=== PATIENT | female | born 1950 | race Caucasian/White ===

== ENCOUNTER 2018-09-06 05:32 | Day surgery (SDC) | payer OTHER, BC ==
[~2018-09-06] VITALS: Ht 165.1 cm; Wt 113.4 kg
--- NOTE | ~2018-09-06 | EKG ---
[address] [address] ELECTROCARDIOGRAM REPORT Name: MAULIK COLLINS Room #: 150-8 [facility].#: [id number] Admission: 09/06/18 Attend Phys: Navneet Mathews MD Discharge: Date of : 48 Report #: [id number] THIS REPORT FOR: //name// [facility] Test Date: 2018-09-06 Test Time: 06:40:00 Pat Name: MAULIK COLLINS Department: Room: 150 8 Gender: F Clamper: EDMOND : 1950 Requested By: Navneet Mathews Order Number: [id number] MD: Rogers Abbasi Measurements Intervals Hale Rate: 58 P: 46 DC: 197 QRS: 30 QRSD: 104 T: 28 QT: 433 QTc: 426 Interpretive Statements Sinus bradycardia Low voltage, precordial leads No previous ECG available for comparison Electronically Signed On 09-06-2018 8:09:22 CDT by Rogers Abbasi [email or web address] <ELECTRONICALLY SIGNED> By: Rogers Abbasi MD, [facility] 09/06/18 0809 0640 0640 Rogers Abbasi MD, FACC /EPI
--- NOTE | ~2018-09-06 | O ---
[address] [place] [address] OPERATIVE REPORT Name: MAULIK COLLINS Room #: 150-8 [facility]..#: [id number] Admission: 09/06/18 Attend Phys: Navneet Mathews MD Discharge: Date of : 48 Report #: [id number] THIS REPORT FOR: //name// CC: Ron Mathews DATE OF SERVICE: 09/06/2018 PATIENT OF: Dr. Navneet Mathews and Dr. Ron Retana. PREOPERATIVE DIAGNOSIS: Incarcerated ventral supraumbilical hernia. POSTOPERATIVE DIAGNOSIS: Incarcerated ventral supraumbilical hernia. PROCEDURE: Repair of an incarcerated ventral supraumbilical hernia. SURGEON: Navneet Mathews M.D. ANESTHESIA: Local IV sedation. DESCRIPTION OF PROCEDURE: The patient was brought to the operating room and placed on the operative room table in the supine position. Sequential compression devices were in place for DVT prophylaxis. There was no indication for preoperative antibiotics. The patient underwent IV sedation. The abdomen was then prepped and draped in a sterile fashion. Skin and subcutaneous tissue around the hernia was infiltrated with 0.5% Marcaine and 1% Xylocaine in a 1:1 mixture. A transverse skin incision was performed over the hernia using a #15 scalpel blade. Hemostasis obtained using electrocautery. Dissection was carried down through the subcutaneous tissue to the incarcerated hernia sac, which was dissected free, opened and some incarcerated omentum was dissected free and reduced back into the abdomen. The hernia sac was excised. There were two components of this hernia with a small bridge of fascia in between. I opened the bridge and dissected free the fascial edges and then they were able to be closed, fixing the hernia with interrupted [id number] #1 Prolene sutures without any tension. The deep and superficial subcutaneous tissue was then reapproximated using simple interrupted 2-0 chromic sutures and the skin then closed with a running 4-0 subcuticular Vicryl stitch. The wound was then dressed with Dermabond, Telfa, 4 x 4 gauze, sponge and tape. The patient was then taken to the recovery room awake, alert and in good condition. Estimated blood loss was approximately 10 mL and the patient tolerated procedure well. All sponge, lap and instrument counts correct x 2. By: 0910 1122 Navneet Mathews MD /nt
--- NOTE | ~2018-09-06 | PATH ---
[facility] [address] [place] [address] PATHOLOGY RPT PROCEDURE Name: MAULIK COLLINS Room #: [facility].#: [id number] Admission: 09/06/18 Date of : 48 Discharge: 09/06/18 Report #: [id number] Path Case #: [id number] [facility] Accession Number: [id number] . 01 Material submitted: . UMBILICAL HERNIA SAC . 01 Clinical history: . Umbilical hernia . 02 Diagnosis: Fibroadipose tissue, "umbilical hernia sac, herniorrhaphy": - Saccular fibroadipose tissue with congestion and chronic inflammation. . (SHA:mml; 09/07/18) QLM/09/07/2018 . 02 Electronically signed: . Chris Mariano MD, Pathologist NPI- [id number] . 01 Gross description: . The specimen is received in formalin, labeled "Anderson, Maulik, umbilical hernia sac" and consists of 2 membranous segment of toure-brooks tissue with attached yellow adipose tissue measuring 4.1 x 2.8 x 1.6 cm in aggregate. Sectioning reveals the membranous tissue to be slightly edematous. No nodules or mass lesions are identified. Represent sections are submitted in A1. (SDY; 09/06/2018) SYU/SYU . 02 Pathologist provided ICD-10: K42.9 . 02 CPT . 662538 Specimen Comment: A courtesy copy of this report has been sent to Specimen Comment: [phone], . Specimen Comment: Report sent to / DR BLAS Performed at: [address], [place], [place] [id number] MD Ata Torres MD Phone: [phone] Performed at: [address] [id number] MD Divina Day MD Phone: [phone]
--- NOTE | ~2018-09-06 | H ---
[facility] [place] [address] [place] [address] HISTORY AND PHYSICAL Name: MAULIK COLLINS Room #: 150-8 [facility]..#: [id number] Admission: 09/06/18 Attend Phys: Navneet Mathews MD Discharge: Date of : 48 Report #: [id number] THIS REPORT FOR: //name// CC: Ron Mathews DATE OF SERVICE: 09/06/2018 CHIEF COMPLAINT: Abdominal bulge. HISTORY OF PRESENT ILLNESS: The patient is a 68-year-old morbidly obese white female for practically all of her life has noticed a bulge in the umbilicus. It never caused her any discomfort, remained about the same in size for many years. She states recently, it has been getting larger and occasionally causes her some discomfort, particularly if she leans up against it. She denied any changes in bowel or bladder habits. No previous history of any laparoscopic or umbilical surgery. Her last colonoscopy was by Dr. Anthony 3 years ago, was normal. She was seen by Dr. Retana, who recommended surgical consultation. 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 PAST SURGICAL HISTORY: Tonsillectomy and adenoidectomy, bladder stretch procedure in 1959, colonoscopy as above, right hip replacement 08/2017. MEDICATIONS: Fenofibrate 145 mg p.o. q. day, escitalopram oxalate 20 mg p.o. q. day, hydrochlorothiazide 25 mg p.o. q. day, metformin 500 mg p.o. q. day, lisinopril 40 mg p.o. q. day, pioglitazone 30 mg p.o. q. day, simvastatin 40 mg p.o. q. day. ALLERGIES: VENLAFAXINE CAUSES A RASH AND HIVES. FAMILY HISTORY: No pertinent family history at this time. SOCIAL HISTORY: The patient is . Quit smoking in 2014. Does not drink alcohol. She is a retired teacher. REVIEW OF SYSTEMS: Pertinent positives as above. Full review of systems is otherwise negative. PHYSICAL EXAMINATION: GENERAL: This is a well-developed, well-nourished, morbidly obese white female in no acute distress. VITAL SIGNS: Stable. She is afebrile. Height is 62 inches, weight is 255 pounds, BMI of 46. HEENT: Sclerae are nonicteric. Mucous membranes moist and pink. [address] [address] HISTORY AND PHYSICAL Name: MAULIK COLLINS Room #: 150-8 [facility].#: [id number] Admission: 09/06/18 Attend Phys: Navneet Mathews MD Discharge: Date of : 48 Report #: [id number] NECK: There is no adenopathy. LUNGS: Clear to auscultation bilaterally. Normal excursion. CARDIOVASCULAR: Regular rate and rhythm. No murmurs, S3 or S4. Normal PMI. ABDOMEN: Morbidly obese, soft, flat, nontender. There is a large supraumbilical and umbilical hernia, which is nonreducible. No other organomegaly or masses. No abdominal incision scars. EXTREMITIES: No clubbing, cyanosis or edema. She has bilateral hip incision scars. No other palpable masses. NEUROLOGIC: Intact with a clear mental status. IMPRESSION: A 68-year-old white female with a very large ventral umbilical hernia with a supraumbilical component as well. I fully discussed with the patient diagnosis, prognosis and treatment options and the risks and benefits of each. I have recommended an umbilical ventral hernia repair. She states she understands and agrees with proposed surgery. PLAN: We will perform an umbilical ventral hernia repair as an outpatient under local IV sedation at [facility]. The procedures, risks, benefits, possible complications including possible need for mesh were fully discussed with the patient. She states she understands and agrees with proposed surgery. <ELECTRONICALLY SIGNED> By: Navneet Mathews MD 09/06/18 0911 1220 1254 Navneet Mathews MD /nt
[~2018-09-06 05:32] MED LIST: AMOXICILLIN500 M1 PO; ASPIRIN EC81 M1 PO; CHLOR-TABLET4 MG PO; ESCITALOPRAM OX20 MG PO; FLEXERIL PO; GLUCOPHAGE XR500 MG PO; HYDROCHLOROTHIA25 M1 PO; LISINOPRIL40 MG PO; NAPROSYN500 MG PO; SIMVASTATIN40 MG PO; TRICOR145 MG PO; TYLENOL PM EX-1 EACH PO
[2018-09-06 07:16] LABS: CALCIUM 9.1 mg/dL (8.5-10.1); CREATININE 0.9 mg/dL (0.6-1.0); POTASSIUM 3.6 mmol/L (3.5-5.1)
[2018-09-06 07:34] VITALS: BP 136/59
[2018-09-06] MEDS ORDERED: NORCO 5-325 TA1 EACH PO (08:04)
[2018-09-06 09:34] VITALS: BP 136/59
== END 2018-09-06 10:05 | disposition home or self-care (01) ==
LOC: OR 05:32 → TBA 05:32 → OR 10:05
PROVIDERS: Surgery
DX: K43.6 Other and unspecified ventral hernia with obstruction, without gangrene (principal); E66.01 Morbid (severe) obesity due to excess calories; B35.9 Dermatophytosis, unspecified; F41.9 Anxiety disorder, unspecified; F32.9 Major depressive disorder, single episode, unspecified; I10 Essential (primary) hypertension; E11.9 Type 2 diabetes mellitus without complications; M19.90 Unspecified osteoarthritis, unspecified site; Z79.899 Other long term (current) drug therapy; Z79.84 Long term (current) use of oral hypoglycemic drugs; Z91.09 Other allergy status, other than to drugs and biological substances; Z90.89 Acquired absence of other organs; Z98.890 Other specified postprocedural states; Z87.891 Personal history of nicotine dependence; Z68.42 Body mass index [BMI] 45.0-49.9, adult; Z96.643 Presence of artificial hip joint, bilateral
CPT/HCPCS: 50010; 50101; 50386; 50417; 54118; 56524; 56525; 56526; 62110; 62850; 70005